=== PATIENT | male | born 1955 | race Hispanic/Latino ===

== ENCOUNTER 2017-02-09 11:01 | Inpatient (IN) | payer MEDICARE, OTHER ==
[2017-02-09 11:02] VITALS: BMI 25.0
[2017-02-09 13:09] LABS: BASO % 0.3 % (0.0-2.0); EOS # 0.1 K/uL (0.0-0.7); HEMATOCRIT 33.6 % (35.0-51.0); LYMPH # 0.7 K/uL (1.0-4.3); LYMPH % 7.1 % (20.0-40.0); MEAN CORPUSCULAR HGB CONC 31.9 g/dL (33.0-37.0); MEAN PLATELET VOLUME 10.8 fL (7.2-11.7); MONO # 0.8 K/uL (0.0-0.8); MONO % 8.1 % (0.0-10.0); PLATELET COUNT 194 K/uL (130-400); RED CELL DISTRIBUTION WIDTH 15.5 % (11.5-14.5); WHITE BLOOD COUNT 10.4 K/uL (4.8-10.8)
[2017-02-09 13:11] LABS: CHLORIDE 99 mmol/L (98-107); MEAN CELL VOLUME 84.8 fL (80.0-94.0); POTASSIUM 2.6 mmol/L (3.6-5.2); SODIUM 134 mmol/L (132-148)
[2017-02-09 13:13] LABS: GFR AFRICAN-AMERICAN > 60
[2017-02-09 13:14] LABS: ALB/GLOB RATIO 0.9 (1.0-2.1); ALKALINE PHOSPHATASE 64 U/L (38-126); ALT/SGPT 45 U/L (21-72); AST/SGOT 50 U/L (17-59); BILIRUBIN,TOTAL 0.3 mg/dL (0.2-1.3); BLOOD UREA NITROGEN 16 mg/dL (9-20); CARBON DIOXIDE 21 mmol/L (22-30); GLUCOSE,RANDOM 241 mg/dL (75-110); TOTAL PROTEIN 5.2 g/dL (6.3-8.3)
[2017-02-09 13:15] LABS: CALCIUM 7.2 mg/dl (8.6-10.4)
[2017-02-09 13:20] LABS: INR 1.2
--- NOTE | 2017-02-09 13:24 | C.PDOC ---
History Of Present Illness 61-year-old male, PMHx includes Diabetes, presents to the emergency department with complaints of increasing pain to left foot for the past several weeks. Patient notes an ulcer to the dorsum w/ drainage and increasing swelling. Patient has a Hx of ulcers/pain to feet secondary to diabetes. Notes that diabetes is becoming difficult to control. Denies nausea/vomiting, fevers, chills, shortness of breath, chest pain, or any other associated symptoms. No other complaints at this time. Time Seen by Provider: 02/09/17 13:08 Chief Complaint (Nursing): Lower Extremity Problem/Injury History Per: Patient History/Exam Limitations: no limitations Past Medical History Reviewed: Historical Data, Nursing Documentation, Vital Signs Vital Signs: Last Vital Signs Temp 97.4 F L 02/10/17 08:49 Pulse 96 H 02/10/17 08:49 Resp 20 02/10/17 08:49 BP 116/62 02/10/17 10:12 Pulse Ox 100 02/10/17 13:53 - Medical History PMH: Diabetes, HTN, Hypercholesterolemia, Personality Disorder Other Surgeries: "foot" Family History: States: Unknown Family Hx - Social History Hx Tobacco Use: No Hx Alcohol Use: Yes Hx Substance Use: No - Immunization History Hx Tetanus Toxoid Vaccination: No Review Of Systems Except As Marked, All Systems Reviewed And Found Negative. Constitutional: Negative for: Fever, Chills Respiratory: Negative for: Shortness of Breath Gastrointestinal: Negative for: Nausea, Vomiting Musculoskeletal: Positive for: Foot Pain Skin: Negative for: Rash Physical Exam - Physical Exam Appears: Non-toxic, No Acute Distress Skin: Warm, Dry, No Rash Neck: Normal ROM Respiratory: No Accessory Muscle Use, No Wheezing Extremity: Deformity (Charcot's deformity both feet, Rt with amputation 4 -5 metarsal), Other (Left - mid dorsum with ulcer, difuse swelling tenderness and warmth) Neurological/Psych: Oriented x3, Normal Speech, Normal Cognition ED Course And Treatment - Laboratory Results Result Diagrams: 02/09/17 12:56 02/10/17 07:04 O2 Sat by Pulse Oximetry: 100 Medical Decision Making Medical Decision Making: Clinically c/w diabetic foot infection Pt started on zosyn and vancomycin, tetanus updated Pt will need admission for IV abx and possible surgery Discussed with dr Josue agrees with plan Disposition - Disposition Disposition: HOSPITALIZED Disposition Time: 00:00 Condition: GOOD - Clinical Impression Clinical Impression: Diabetic foot infection, Diabetic Charcot's foot - Scribe Statement The provider has reviewed the documentation as recorded by the Scribrosio Sharif All medical record entries made by the Scribe were at my direction and personally dictated by me. I have reviewed the chart and agree that the record accurately reflects my personal performance of the history, physical exam, medical decision making, and the department course for this patient. I have also personally directed, reviewed, and agree with the discharge instructions and disposition. Decision To Admit - Pt Status Changed To: Hospital Disposition Of: Inpatient - Admit Certification Admit to Inpatient:: After my assessment, the patient will require hospitalization for at least two midnights. This is because of the severity of symptoms shown, intensity of services needed, and/or the medical risk in this patient being treated as an outpatient. - InPatient: Physician Admission Certification: I certify that this patient requires 2 or more midnights of care for the following reason:: see note - . Bed Request Type: Regular Admitting Physician: Dillan Iglesias Patient Diagnosis: Diabetic foot infection, Diabetic Charcot's foot
[2017-02-09 13:28] LABS: EOSINOPHIL 1 % (0-4); MYELOCYTE 1 % (0-0); NEUTROPHIL 87 % (50-75); TOTAL CELLS COUNTED 100
[2017-02-09] MEDS ORDERED: Potassium Chloride 20 mEq ER Tab PO STA (13:29)
[2017-02-09] MEDS ORDERED: Piperacillin/Tazobact 3.375 gm 100 ML IV STA (13:29)
[2017-02-09 13:31] LABS: LARGE PLATELETS PRESENT
[2017-02-09] MEDS ORDERED: Piperacillin/Tazobact 3.375 gm 100 ML IVPB ONE (13:50)
[2017-02-09] MEDS ORDERED: Potassium Chloride 20 mEq ER Tab PO ONE ×3 (13:50→19:42)
--- NOTE | 2017-02-09 15:25 | RAD ---
Indication: Swollen, infection Left foot radiographs Comparison: Left foot radiographs performed 11/19/14 Findings: Extensive destructive changes, sclerosis, and abnormality involving the midfoot compatible with Charcot's joint. Extensive joint space narrowing throughout the foot. Osseous fusion noted about the mid to distal 4th and 5th metatarsals. Destruction of the PIP joint. Soft tissue swelling. Osseous demineralization. Impression: Extensive deformity. Midfoot collapse. Extensive destructive changes, sclerosis, and abnormality particularly involving the midfoot compatible with Charcot's joint. Extensive soft tissue swelling. Correlate clinically. Please note that MRI with IV contrast is more sensitive in detection of acute osteomyelitis.
[2017-02-09] MEDS: Potassium Chloride 20 mEq ER Tab PO SCH (19:49)
[2017-02-09] MEDS: Piperacill/Tazo 3.375gm in Dex 50 ML IVPB SCH (20:04)
[2017-02-09] MEDS ORDERED: Insulin Detemir 100 units/ml Vial (Levemir) SC STA (21:52)
[2017-02-09] MEDS ORDERED: (Novolog) Insulin Aspart, Recombinant 100 u/ml 10 ml vial SC STA (21:52)
[2017-02-09 23:39] VITALS: RESP 20
[2017-02-10] MEDS: Piperacill/Tazo 3.375gm in Dex 50 ML IVPB SCH ×4 (01:00→20:00)
[2017-02-10] MEDS ORDERED: (Novolog) Insulin Aspart, Recombinant 100 u/ml 10 ml vial SC ONE (06:24)
[2017-02-10 07:27] LABS: CHLORIDE 97 mmol/L (98-107)
[2017-02-10 07:28] LABS: POTASSIUM 3.8 mmol/L (3.6-5.2); SODIUM 136 mmol/L (132-148)
[2017-02-10 07:30] LABS: GFR AFRICAN-AMERICAN > 60
[2017-02-10 07:31] LABS: BLOOD UREA NITROGEN 20 mg/dL (9-20); CALCIUM 8.9 mg/dl (8.6-10.4); CARBON DIOXIDE 26 mmol/L (22-30); GLUCOSE,RANDOM 375 mg/dL (75-110)
[2017-02-10] MEDS: (Novolog) Insulin Aspart, Recombinant 100 u/ml 10 ml vial SC SCH ×4 (08:57→21:53)
[2017-02-10] MEDS: Potassium Chloride 20 mEq ER Tab PO SCH ×2 (10:10→17:47)
[2017-02-10] MEDS: Insulin Detemir 100 units/ml Vial (Levemir) SC SCH (10:11)
[2017-02-10] MEDS: Enoxaparin 40 mg Syringe SC SCH (11:42)
--- NOTE | 2017-02-10 13:00 | CP.PCM.CON ---
History of Present Illness - History of Present Illness History of Present Illness: PODIATRY CONSULT NOTE 61 year old male evaluated with attending, Dr. Soliman this morning at bedside. Pt complains of left foot plantar wound. Pt reports he has chronic history with this wound but recently wound site has expanded, and has noted serous drainage. He denies recent F/C/N/V/SOB/CP. Denies pain to the left foot foot. Past Patient History - Infectious Disease Hx of Infectious Diseases: None - Past Medical History & Family History Past Medical History?: Yes - Past Social History Smoking Status: Former Smoker - CARDIAC Hx Hypercholesterolemia: Yes Hx Hypertension: Yes - PULMONARY Hx Respiratory Disorders: No - NEUROLOGICAL Hx Neurological Disorder: No - HEENT Hx HEENT Problems: No - RENAL Hx Chronic Kidney Disease: No - ENDOCRINE/METABOLIC Hx Diabetes Mellitus Type 2: Yes (greater than 30 years. On Insulin) - HEMATOLOGICAL/ONCOLOGICAL Hx Blood Disorders: No - INTEGUMENTARY Hx Dermatological Problems: No - MUSCULOSKELETAL/RHEUMATOLOGICAL Hx Falls: No Hx Unsteady Gait: Yes (L foot non-weight bearing) - GASTROINTESTINAL Hx Gastrointestinal Disorders: No - GENITOURINARY/GYNECOLOGICAL Hx Genitourinary Disorders: No - PSYCHIATRIC Hx Psychophysiologic Disorder: No Hx Substance Use: No - SURGICAL HISTORY Hx Surgeries: Yes Hx Amputation: Yes (Right foot 4th&5th digit amputation 25 yrs ago) - ANESTHESIA Hx Anesthesia: Yes Hx Anesthesia Reactions: No Hx Malignant Hyperthermia: No Meds Allergies/Adverse Reactions: Allergies Allergy/AdvReac Type Severity Reaction Status Date / Time No Known Allergies Allergy Verified 02/09/17 11:22 - Medications Medications: Current Medications Carvedilol (Coreg) 25 mg PO BID REPLACED BY [facility] Last Admin: 02/10/17 10:12 Dose: 25 mg Diphenhydramine HCl (Benadryl) 25 mg PO HS PRN PRN Reason: Insomnia Last Admin: 02/10/17 02:14 Dose: 25 mg Enoxaparin Sodium (Lovenox) 40 mg SC DAILY REPLACED BY [facility] Last Admin: 02/10/17 11:42 Dose: 40 mg Vancomycin HCl (Vancomycin 1gm In Normal Saline Addvantage) 250 mls @ 166.667 mls/hr IV STAT REPLACED BY [facility] Piperacillin Sod/Tazobactam Sod (Zosyn 3.375 Gm Iv Premix) 50 mls @ 100 mls/hr IVPB Q6H REPLACED BY [facility] Last Admin: 02/10/17 12:52 Dose: 100 mls/hr Insulin Aspart (Novolog) 0 unit SC ACHS REPLACED BY [facility] PRN Reason: Protocol Last Admin: 02/10/17 11:42 Dose: 2 unit Insulin Detemir (Levemir) 10 unit SC DAILY REPLACED BY [facility] Last Admin: 02/10/17 10:11 Dose: 10 unit Lisinopril (Zestril) 20 mg PO DAILY [facility]PLACED BY [facility] Last Admin: 02/10/17 10:10 Dose: 20 mg Potassium Chloride (K-Dur 20 Meq Er Tab) 20 meq PO BID REPLACED BY [facility] Last Admin: 02/10/17 10:10 Dose: 20 meq Physical Exam - Constitutional Appears: Well, Non-toxic, No Acute Distress - Extremities Exam Additional comments: Left LE exam. Dressing clean, dry, and intact. Derm: Ulceration noted to plantar aspect of mid-foot measuring approximately 2.7 cm x 0.6 cm x 0.6cm. Mal odor noted, macerated and hyperkeratotic wound margins noted. No active drainage. Localized edema noted. Leg with superficial ulceration, no drainage, no malodor. Minimal non-pitting edema present to dorsum of foot VASC: DP and PT pulses 1/4. VICE PRESIDENT PAYER<3 seconds, TG WNL, mild non-pitting edema of the right lower extremity and foot. Neuro: Protective sensation grossly diminished. Light touch sensation intact. Ortho: No gross deformities noted. Pedal muscle strength graded 5/5. - Neurological Exam Neurological exam: Alert, Oriented x3 - Psychiatric Exam Psychiatric exam: Normal Affect, Normal Mood Results - Vital Signs Recent Vital Signs: Last Vital Signs Temp 97.4 F L 02/10/17 08:49 Pulse 96 H 02/10/17 08:49 Resp 20 02/10/17 08:49 BP 116/62 02/10/17 10:12 Pulse Ox 97 02/10/17 08:49 - Labs Result Diagrams: 02/09/17 12:56 02/10/17 07:04 Labs: Laboratory Results - last 24 hr 02/09/17 02/10/17 02/10/17 21:48 02:15 05:57 Sodium Potassium Chloride Carbon Dioxide Anion Gap BUN Creatinine Est GFR ( Amer) Est GFR (Non-Af Amer) POC Glucose (mg/dL) 432 H* 337 H 435 H* Random Glucose Calcium Magnesium 02/10/17 02/10/17 07:04 07:26 Sodium 136 Potassium 3.8 Chloride 97 L Carbon Dioxide 26 Anion Gap 17 BUN 20 Creatinine 1.3 Est GFR ( Amer) > 60 Est GFR (Non-Af Amer) 56 POC Glucose (mg/dL) 361 H Random Glucose 375 H Calcium 8.9 Magnesium 1.7 Assessment & Plan - Assessment and Plan (Free Text) Assessment: 61 year old male with left foot Andre grade 2 ulceration. Plan: Pt evaluated and treated at bedside with Dr. Soliman, present. Chart, labs, and vitals reviewed. -Aseptically debrided ulceration site using #10 blade down to dermal tissue layer, excized a total of 6cm2 of macerated-hyperkeratoitc tissue. -Wound sites dressed and packed with betadine Wet-to-dry dressing, DSD, MARIA EUGENIA. - Continue IV antibiotics. -Wound culture results-pending. -Continue IV abx. Infectious disease consult-pending. Podiatry will follow patient while on floors. - Date & Time Date: 02/10/17 Time: 10:00
--- NOTE | 2017-02-10 15:54 | CP.PCM.HP ---
History of Present Illness - History of Present Illness History of Present Illness: CC: left foot pain weeks HPI: 61 year old male, h/o diabetes, PVD, left foot ulcer, Anemia seen ER c/o left foot pain and leg pains few days. Also c/o weakness and difficulties walking. Present on Admission - Present on Admission Any Indicators Present on Admission: Yes History of DVT/PE: No History of Uncontrolled Diabetes: Yes Urinary Catheter: No Decubitus Ulcer Present: No Review of Systems - Review of Systems All systems: reviewed and no additional remarkable complaints except (foot and leg pains, sweating, fatigue) Past Patient History - Infectious Disease Hx of Infectious Diseases: None - Past Medical History & Family History Past Medical History?: Yes - Past Social History Smoking Status: Former Smoker - CARDIAC Hx Hypercholesterolemia: Yes Hx Hypertension: Yes - PULMONARY Hx Respiratory Disorders: No - NEUROLOGICAL Hx Neurological Disorder: No - HEENT Hx HEENT Problems: No - RENAL Hx Chronic Kidney Disease: No - ENDOCRINE/METABOLIC Hx Diabetes Mellitus Type 2: Yes (greater than 30 years. On Insulin) - HEMATOLOGICAL/ONCOLOGICAL Hx Blood Disorders: No - INTEGUMENTARY Hx Dermatological Problems: No - MUSCULOSKELETAL/RHEUMATOLOGICAL Hx Falls: No Hx Unsteady Gait: Yes (L foot non-weight bearing) - GASTROINTESTINAL Hx Gastrointestinal Disorders: No - GENITOURINARY/GYNECOLOGICAL Hx Genitourinary Disorders: No - PSYCHIATRIC Hx Substance Use: No - SURGICAL HISTORY Hx Surgeries: Yes Hx Amputation: Yes (Right foot 4th&5th digit amputation 25 yrs ago) - ANESTHESIA Hx Anesthesia: Yes Hx Anesthesia Reactions: No Hx Malignant Hyperthermia: No Meds Allergies/Adverse Reactions: Allergies Allergy/AdvReac Type Severity Reaction Status Date / Time No Known Allergies Allergy Verified 02/09/17 11:22 Physical Exam - Constitutional Appears: Chronically Ill - Head Exam Head Exam: NORMAL INSPECTION - Eye Exam Eye Exam: Normal appearance - ENT Exam ENT Exam: Normal Exam - Neck Exam Neck exam: Positive for: Normal Inspection - Respiratory Exam Respiratory Exam: NORMAL BREATHING PATTERN - Cardiovascular Exam Cardiovascular Exam: REGULAR RHYTHM - GI/Abdominal Exam GI & Abdominal Exam: Soft - Rectal Exam Rectal Exam: Deferred - Extremities Exam Extremities exam: Positive for: tenderness (left foot dressing noted) Results - Vital Signs Recent Vital Signs: Last Vital Signs Temp 97.4 F L 02/10/17 08:49 Pulse 96 H 02/10/17 08:49 Resp 20 02/10/17 08:49 BP 116/62 02/10/17 10:12 Pulse Ox 100 02/10/17 14:08 - Labs Result Diagrams: 02/09/17 12:56 02/10/17 07:04 Labs: Laboratory Results - last 24 hr 02/09/17 02/10/17 02/10/17 21:48 02:15 05:57 Sodium Potassium Chloride Carbon Dioxide Anion Gap BUN Creatinine Est GFR ( Amer) Est GFR (Non-Af Amer) POC Glucose (mg/dL) 432 H* 337 H 435 H* Random Glucose Calcium Magnesium 02/10/17 02/10/17 07:04 07:26 Sodium 136 Potassium 3.8 Chloride 97 L Carbon Dioxide 26 Anion Gap 17 BUN 20 Creatinine 1.3 Est GFR ( Amer) > 60 Est GFR (Non-Af Amer) 56 POC Glucose (mg/dL) 361 H Random Glucose 375 H Calcium 8.9 Magnesium 1.7 Assessment & Plan (1) Diabetic foot infection Status: Acute (2) Anemia Status: Chronic Priority: Medium Diagnosis Date: 11/19/14 (3) Uncontrolled diabetes mellitus Status: Acute - Assessment and Plan (Free Text) Plan: Continue medications. Podiatry Consult Dr. Soliman - Date & Time Date: 02/10/17 Time: 15:57
[2017-02-10] MEDS ORDERED: Vancomycin 1 gm/NS 200 ml 200 ML IVPB ONE (16:00)
--- NOTE | 2017-02-10 23:01 | CP.PCM.CON ---
History of Present Illness - History of Present Illness History of Present Illness: 61 year old male seen today for chronic foot wound left .Pt. has chronic wound and Charcot changes in foot and has not been in for treatment for several years . Wound is infected and deep .Vascular status intact . No abscess noted . Xrays -Charcot changes .Will order MRI to R/O OM.See Resident note for complete findings. Past Patient History - Infectious Disease Hx of Infectious Diseases: None - Past Medical History & Family History Past Medical History?: Yes - Past Social History Smoking Status: Former Smoker - CARDIAC Hx Hypercholesterolemia: Yes Hx Hypertension: Yes - PULMONARY Hx Respiratory Disorders: No - NEUROLOGICAL Hx Neurological Disorder: No - HEENT Hx HEENT Problems: No - RENAL Hx Chronic Kidney Disease: No - ENDOCRINE/METABOLIC Hx Diabetes Mellitus Type 2: Yes (greater than 30 years. On Insulin) - HEMATOLOGICAL/ONCOLOGICAL Hx Blood Disorders: No - INTEGUMENTARY Hx Dermatological Problems: No - MUSCULOSKELETAL/RHEUMATOLOGICAL Hx Falls: No Hx Unsteady Gait: Yes (L foot non-weight bearing) - GASTROINTESTINAL Hx Gastrointestinal Disorders: No - GENITOURINARY/GYNECOLOGICAL Hx Genitourinary Disorders: No - PSYCHIATRIC Hx Psychophysiologic Disorder: No Hx Substance Use: No - SURGICAL HISTORY Hx Surgeries: Yes Hx Amputation: Yes (Right foot 4th&5th digit amputation 25 yrs ago) - ANESTHESIA Hx Anesthesia: Yes Hx Anesthesia Reactions: No Hx Malignant Hyperthermia: No Meds Allergies/Adverse Reactions: Allergies Allergy/AdvReac Type Severity Reaction Status Date / Time No Known Allergies Allergy Verified 02/09/17 11:22 - Medications Medications: Current Medications Carvedilol (Coreg) 25 mg PO BID [facility] Last Admin: 02/10/17 17:49 Dose: 25 mg Diazepam (Valium) 5 mg PO HS PRN PRN Reason: Insomnia Last Admin: 02/10/17 21:52 Dose: 5 mg Enoxaparin Sodium (Lovenox) 40 mg SC DAILY [facility] Last Admin: 02/10/17 11:42 Dose: 40 mg Vancomycin HCl (Vancomycin 1gm In Normal Saline Addvantage) 250 mls @ 166.667 mls/hr IV STAT [facility] Piperacillin Sod/Tazobactam Sod (Zosyn 3.375 Gm Iv Premix) 50 mls @ 100 mls/hr IVPB Q6H [facility] Last Admin: 02/10/17 20:00 Dose: 100 mls/hr Insulin Aspart (Novolog) 0 unit SC ACHS [facility] PRN Reason: Protocol Last Admin: 02/10/17 21:53 Dose: 2 unit Insulin Detemir (Levemir) 10 unit SC DAILY [facility] Last Admin: 02/10/17 10:11 Dose: 10 unit Lisinopril (Zestril) 20 mg PO DAILY [facility] Last Admin: 02/10/17 10:10 Dose: 20 mg Potassium Chloride (K-Dur 20 Meq Er Tab) 20 meq PO BID [facility] Last Admin: 02/10/17 17:47 Dose: 20 meq Physical Exam - Extremities Exam Additional comments: o/ andre 2 ulcer midfoot left with deep probe and malodor . Vascular status grossly intact b/l DM neuropathy b/l wiyh decreased sensorium . Charcot foot b/l left>>right . Results - Vital Signs Recent Vital Signs: Last Vital Signs Temp 97.4 F L 02/10/17 08:49 Pulse 96 H 02/10/17 08:49 Resp 20 02/10/17 08:49 BP 135/82 02/10/17 17:49 Pulse Ox 100 02/10/17 14:08 - Labs Result Diagrams: 02/09/17 12:56 02/10/17 07:04 Labs: Laboratory Results - last 24 hr 02/10/17 02/10/17 02/10/17 02:15 05:57 07:04 Sodium 136 Potassium 3.8 Chloride 97 L Carbon Dioxide 26 Anion Gap 17 BUN 20 Creatinine 1.3 Est GFR ( Amer) > 60 Est GFR (Non-Af Amer) 56 POC Glucose (mg/dL) 337 H 435 H* Random Glucose 375 H Calcium 8.9 Magnesium 1.7 02/10/17 02/10/17 02/10/17 07:26 11:35 16:53 Sodium Potassium Chloride Carbon Dioxide Anion Gap BUN Creatinine Est GFR ( Amer) Est GFR (Non-Af Amer) POC Glucose (mg/dL) 361 H 195 H 295 H Random Glucose Calcium Magnesium 02/10/17 21:33 Sodium Potassium Chloride Carbon Dioxide Anion Gap BUN Creatinine Est GFR ( Amer) Est GFR (Non-Af Amer) POC Glucose (mg/dL) 335 H Random Glucose Calcium Magnesium Assessment & Plan - Assessment and Plan (Free Text) Assessment: A/Infected Andre 2 ulcer left Plan: p/IV antibiotics /1/4 strength Dakins solution wet/dry dressing daily. MRI to R/O O.M.
[2017-02-11] MEDS: Piperacill/Tazo 3.375gm in Dex 50 ML IVPB SCH ×4 (01:45→19:48)
[2017-02-11] MEDS: (Novolog) Insulin Aspart, Recombinant 100 u/ml 10 ml vial SC SCH ×4 (08:29→22:00)
--- NOTE | 2017-02-11 10:07 | CP.PCM.PN ---
Subjective - Date & Time of Evaluation Date of Evaluation: 02/11/17 Time of Evaluation: 10:05 - Subjective Subjective: S: C/o problem sleeping. Wants to go home and continue IV antibiotic at home. Objective - Vital Signs/Intake and Output Vital Signs (last 24 hours): Temp Pulse Resp BP Pulse Ox 97.4 F L 110 H 20 112/75 96 02/11/17 08:13 02/11/17 08:13 02/11/17 08:13 02/11/17 08:13 02/11/17 08:13 Intake and Output: 02/11/17 02/11/17 06:59 18:59 Intake Total 750 Output Total 900 Balance -150 - Medications Medications: Current Medications Acetaminophen/Codeine Phosphate (Tylenol/Codeine 300 Mg/30 Mg) 1 ea PO Q4 PRN PRN Reason: Pain, moderate (4-7) Carvedilol (Coreg) 25 mg PO BID [facility] Last Admin: 02/10/17 17:49 Dose: 25 mg Diazepam (Valium) 5 mg PO HS PRN PRN Reason: Insomnia Last Admin: 02/10/17 21:52 Dose: 5 mg Enoxaparin Sodium (Lovenox) 40 mg SC DAILY [facility] Last Admin: 02/10/17 11:42 Dose: 40 mg Vancomycin HCl (Vancomycin 1gm In Normal Saline Addvantage) 250 mls @ 166.667 mls/hr IV STAT [facility] Piperacillin Sod/Tazobactam Sod (Zosyn 3.375 Gm Iv Premix) 50 mls @ 100 mls/hr IVPB Q6H [facility] Last Admin: 02/11/17 08:28 Dose: 100 mls/hr Insulin Aspart (Novolog) 0 unit SC ACHS [facility] PRN Reason: Protocol Last Admin: 02/11/17 08:29 Dose: 10 unit Insulin Glargine (Lantus) 40 unit SC DAILY [facility] Lisinopril (Zestril) 20 mg PO DAILY [facility] Last Admin: 02/10/17 10:10 Dose: 20 mg Potassium Chloride (K-Dur 20 Meq Er Tab) 20 meq PO BID [facility] Last Admin: 02/10/17 17:47 Dose: 20 meq - Labs Labs: 02/10/17 07:04 PT 12.9 SECONDS (9.7-12.2) H 02/09/17 12:56 INR 1.2 02/09/17 12:56 APTT 31 SECONDS (21-34) 02/09/17 12:56 - Constitutional Appears: Chronically Ill - Head Exam Head Exam: NORMAL INSPECTION - Eye Exam Eye Exam: Normal appearance - Neck Exam Neck Exam: Normal Inspection - Respiratory Exam Respiratory Exam: NORMAL BREATHING PATTERN - Cardiovascular Exam Cardiovascular Exam: REGULAR RHYTHM - GI/Abdominal Exam GI & Abdominal Exam: Soft - Rectal Exam Rectal Exam: Deferred - Extremities Exam Extremities Exam: Tenderness - Neurological Exam Neurological Exam: Alert Assessment and Plan (1) Diabetic foot infection Status: Acute (2) Anemia Status: Chronic (3) Uncontrolled diabetes mellitus Status: Acute - Assessment and Plan (Free Text) Plan: P: Will Discuss with Dr. Dasilva about home IV antibiotic. Inceased insuline dose. BS elevated
[2017-02-11] MEDS: Potassium Chloride 20 mEq ER Tab PO SCH ×2 (10:14→18:00)
[2017-02-11] MEDS: Enoxaparin 40 mg Syringe SC SCH (10:14)
[2017-02-11] MEDS: Insulin Detemir 100 units/ml Vial (Levemir) SC SCH (10:15)
--- NOTE | 2017-02-11 11:11 | CP.PCM.PN ---
Subjective - Date & Time of Evaluation Date of Evaluation: 02/11/17 Time of Evaluation: 02:40 - Subjective Subjective: 61 year old male evaluated bedside. Pt has no pedal complaints at this time. He denies both acute overnight events and recent F/C/N/V/SOB/CP. Denies pain to the left foot foot. Pt states he ideally would like to be discharged by Sunday, potentially AMA if needed. Objective - Vital Signs/Intake and Output Vital Signs (last 24 hours): Temp Pulse Resp BP Pulse Ox 97.4 F L 110 H 20 112/75 96 02/11/17 08:13 02/11/17 08:13 02/11/17 08:13 02/11/17 10:14 02/11/17 08:13 Intake and Output: 02/11/17 02/11/17 06:59 18:59 Intake Total 750 Output Total 900 Balance -150 - Medications Medications: Current Medications Acetaminophen/Codeine Phosphate (Tylenol/Codeine 300 Mg/30 Mg) 1 ea PO Q4 PRN PRN Reason: Pain, moderate (4-7) Carvedilol (Coreg) 25 mg PO BID [facility] Last Admin: 02/11/17 10:14 Dose: 25 mg Diazepam (Valium) 5 mg PO HS PRN PRN Reason: Insomnia Last Admin: 02/10/17 21:52 Dose: 5 mg Enoxaparin Sodium (Lovenox) 40 mg SC DAILY [facility] Last Admin: 02/11/17 10:14 Dose: 40 mg Vancomycin HCl (Vancomycin 1gm In Normal Saline Addvantage) 250 mls @ 166.667 mls/hr IV STAT [facility] Piperacillin Sod/Tazobactam Sod (Zosyn 3.375 Gm Iv Premix) 50 mls @ 100 mls/hr IVPB Q6H [facility] Last Admin: 02/11/17 08:28 Dose: 100 mls/hr Insulin Aspart (Novolog) 0 unit SC ACHS [facility] PRN Reason: Protocol Last Admin: 02/11/17 08:29 Dose: 10 unit Insulin Glargine (Lantus) 40 unit SC DAILY [facility] Lisinopril (Zestril) 20 mg PO DAILY [facility] Last Admin: 02/11/17 10:14 Dose: 20 mg Potassium Chloride (K-Dur 20 Meq Er Tab) 20 meq PO BID [facility] Last Admin: 02/11/17 10:14 Dose: 20 meq - Labs Labs: 02/10/17 07:04 PT 12.9 SECONDS (9.7-12.2) H 02/09/17 12:56 INR 1.2 02/09/17 12:56 APTT 31 SECONDS (21-34) 02/09/17 12:56 - Constitutional Appears: Well, Non-toxic, No Acute Distress - Extremities Exam Additional comments: Left LE exam. Dressing clean, dry, and intact. Derm: Ulceration noted to plantar aspect of mid-foot measuring approximately 2.7 cm x 0.6 cm x 0.6cm. Mal odor noted, macerated wound margin noted. No active drainage. Localized edema noted. Leg with superficial ulceration, no drainage, no malodor. Minimal non-pitting edema present to dorsum of foot. Lateral border 0.5 cm skin cleft noted with no epidermal compromise noted. VASC: DP and PT pulses 1/4. PIECE MEAT TRIMMER<3 seconds, TG WNL, mild non-pitting edema of the right lower extremity and foot. Neuro: Protective sensation grossly diminished. Light touch sensation intact. Ortho: No gross deformities noted. Pedal muscle strength graded 5/5. - Neurological Exam Neurological Exam: Alert, Awake, Oriented x3 - Psychiatric Exam Psychiatric exam: Normal Affect, Normal Mood Assessment and Plan - Assessment and Plan (Free Text) Assessment: 61 year old male with left foot Andre grade 2 ulceration. Plan: Pt evaluated and treated at bedside. Chart, labs, and vitals reviewed. Discussed with Dr. Janny hutton. -Wound sites dressed and packed with betadine Wet-to-dry dressing, DSD, MARIA EUGENIA. -Wound culture results-show Providencia Stuartii & Corynebacterisum species . -Continue IV abx. Infectious disease consult-pending. Podiatry will follow patient while on floors.
[2017-02-11] MEDS: Acetaminophen-Codeine 300/30 mg Tab PO PRN ×3 (12:21→22:01)
--- NOTE | 2017-02-11 16:33 | CP.PCM.CON ---
History of Present Illness - History of Present Illness History of Present Illness: 61 year old male, h/o diabetes, PVD, left foot ulcer, Anemia seen ER c/o left foot pain and leg pains few days. Also c/o weakness and difficulties walking. HAS CHRONIC ULCER LEFT FOOT WITH CHARCOT FOOT MISSING 4TH AND 5TH DIGITS RIGHT FOOT DENIES FEVER CHILLS REFUSED AMP IN PAST Past Patient History - Infectious Disease Hx of Infectious Diseases: None - Past Medical History & Family History Past Medical History?: Yes - Past Social History Smoking Status: Former Smoker - CARDIAC Hx Hypercholesterolemia: Yes Hx Hypertension: Yes - PULMONARY Hx Respiratory Disorders: No - NEUROLOGICAL Hx Neurological Disorder: No - HEENT Hx HEENT Problems: No - RENAL Hx Chronic Kidney Disease: No - ENDOCRINE/METABOLIC Hx Diabetes Mellitus Type 2: Yes (greater than 30 years. On Insulin) - HEMATOLOGICAL/ONCOLOGICAL Hx Blood Disorders: No - INTEGUMENTARY Hx Dermatological Problems: No - MUSCULOSKELETAL/RHEUMATOLOGICAL Hx Falls: No Hx Unsteady Gait: Yes (L foot non-weight bearing) - GASTROINTESTINAL Hx Gastrointestinal Disorders: No - GENITOURINARY/GYNECOLOGICAL Hx Genitourinary Disorders: No - PSYCHIATRIC Hx Psychophysiologic Disorder: No Hx Substance Use: No - SURGICAL HISTORY Hx Surgeries: Yes Hx Amputation: Yes (Right foot 4th&5th digit amputation 25 yrs ago) - ANESTHESIA Hx Anesthesia: Yes Hx Anesthesia Reactions: No Hx Malignant Hyperthermia: No Meds Allergies/Adverse Reactions: Allergies Allergy/AdvReac Type Severity Reaction Status Date / Time No Known Allergies Allergy Verified 02/09/17 11:22 - Medications Medications: Current Medications Acetaminophen/Codeine Phosphate (Tylenol/Codeine 300 Mg/30 Mg) 1 ea PO Q4 PRN PRN Reason: Pain, moderate (4-7) Last Admin: 02/11/17 12:21 Dose: 1 ea Carvedilol (Coreg) 25 mg PO BID [facility] Last Admin: 02/11/17 10:14 Dose: 25 mg Diazepam (Valium) 5 mg PO HS PRN PRN Reason: Insomnia Last Admin: 02/10/17 21:52 Dose: 5 mg Enoxaparin Sodium (Lovenox) 40 mg SC DAILY [facility] Last Admin: 02/11/17 10:14 Dose: 40 mg Vancomycin HCl (Vancomycin 1gm In Normal Saline Addvantage) 250 mls @ 166.667 mls/hr IV STAT [facility] Piperacillin Sod/Tazobactam Sod (Zosyn 3.375 Gm Iv Premix) 50 mls @ 100 mls/hr IVPB Q6H [facility] Last Admin: 02/11/17 12:50 Dose: 100 mls/hr Insulin Aspart (Novolog) 0 unit SC ACHS [facility] PRN Reason: Protocol Last Admin: 02/11/17 12:20 Dose: 10 unit Insulin Glargine (Lantus) 40 unit SC DAILY [facility] Lisinopril (Zestril) 20 mg PO DAILY [facility] Last Admin: 02/11/17 10:14 Dose: 20 mg Potassium Chloride (K-Dur 20 Meq Er Tab) 20 meq PO BID [facility] Last Admin: 02/11/17 10:14 Dose: 20 meq Physical Exam - Constitutional Appears: Non-toxic, Cachectic, Chronically Ill - Head Exam Head Exam: ATRAUMATIC, NORMAL INSPECTION, NORMOCEPHALIC - Eye Exam Eye Exam: EOMI, PERRL. absent: Scleral icterus Pupil Exam: PERRL - ENT Exam ENT Exam: Mucous Membranes Dry, Normal External Ear Exam, Normal Oropharynx - Neck Exam Neck exam: Negative for: Lymphadenopathy, Thyromegaly - Respiratory Exam Respiratory Exam: Decreased Breath Sounds, Clear to Auscultation Bilateral - Cardiovascular Exam Cardiovascular Exam: REGULAR RHYTHM, +S1, +S2 - GI/Abdominal Exam GI & Abdominal Exam: Diminished Bowel Sounds, Distended, Soft. absent: Guarding , Hernia, Organomegaly, Pulsatile Mass, Rebound, Tenderness - Rectal Exam Rectal Exam: Deferred - Exam Exam: NORMAL INSPECTION - Extremities Exam Extremities exam: Positive for: pedal edema. Negative for: calf tenderness, tenderness Additional comments: Left LE exam. Dressing clean, dry, and intact. Derm: Ulceration noted to plantar aspect of mid-foot measuring approximately 2.7 cm x 0.6 cm x 0.6cm. Mal odor noted, macerated and hyperkeratotic wound margins noted. No active drainage. Localized edema noted. Leg with superficial ulceration, no drainage, no malodor. Minimal non-pitting edema present to dorsum of foot VASC: DP and PT pulses 1/4. [employer]INEER<3 seconds, TG WNL, mild non-pitting edema of the right lower extremity and foot. Neuro: Protective sensation grossly diminished. Light touch sensation intact. Ortho: No gross deformities noted. Pedal muscle strength graded 5/5. - Back Exam Back exam: absent: CVA tenderness (L), CVA tenderness (R) - Neurological Exam Neurological exam: Alert, CN II-XII Intact, Oriented x3, Reflexes Normal - Psychiatric Exam Psychiatric exam: Normal Mood - Skin Skin Exam: Dry, Intact Results - Vital Signs Recent Vital Signs: Last Vital Signs Temp 97.9 F 02/11/17 16:00 Pulse 101 H 02/11/17 16:00 Resp 20 02/11/17 16:00 BP 122/73 02/11/17 16:00 Pulse Ox 97 02/11/17 16:00 - Labs Result Diagrams: 02/09/17 12:56 02/10/17 07:04 Labs: Laboratory Results - last 24 hr 02/10/17 02/10/17 02/10/17 11:35 16:53 21:33 POC Glucose (mg/dL) 195 H 295 H 335 H 02/11/17 02/11/17 02/11/17 07:25 11:39 16:05 POC Glucose (mg/dL) 376 H 358 H 300 H Assessment & Plan (1) Diabetic Charcot's foot Status: Acute (2) Diabetic foot infection Status: Acute (3) Atrial fibrillation Status: Acute (4) Chronic renal insufficiency, stage III (moderate) Status: Acute (5) Osteomyelitis of ankle or foot, acute Status: Acute (6) Uncontrolled diabetes mellitus Status: Acute - Assessment and Plan (Free Text) Assessment: CONSIDER BONE SCAN AND MRI WILL NEED OR DEBRIDEMENT CIONT IV ANTIBIOTICS AWAIT CULTURES
[2017-02-11] MEDS: Vancomycin 1 gm/NS 200 ml 200 ML IVPB SCH (19:47)
[2017-02-12] MEDS: Piperacill/Tazo 3.375gm in Dex 50 ML IVPB SCH (01:16)
[2017-02-12] MEDS: Vancomycin 1 gm/NS 200 ml 200 ML IVPB SCH (05:31)
[2017-02-12 08:24] VITALS: BP 125/83; PULSE 95; TEMP 97.3; O2SAT 98
--- NOTE | 2017-02-12 08:51 | CP.PCM.PN ---
Subjective - Date & Time of Evaluation Date of Evaluation: 02/12/17 Time of Evaluation: 08:30 - Subjective Subjective: Pt has foot pain but "can not wait for Dr Soliman to do something w/ my foot" No CP, no SOB, no edema and swelling decrease Want to sign AMA Objective - Vital Signs/Intake and Output Vital Signs (last 24 hours): Temp Pulse Resp BP Pulse Ox 97.3 F L 95 H 20 125/83 98 02/12/17 08:22 02/12/17 08:22 02/12/17 08:22 02/12/17 08:22 02/12/17 08:22 Intake and Output: 02/12/17 02/12/17 06:59 18:59 Intake Total 300 Output Total 600 Balance -300 - Medications Medications: Current Medications Acetaminophen/Codeine Phosphate (Tylenol/Codeine 300 Mg/30 Mg) 1 ea PO Q4 PRN PRN Reason: Pain, moderate (4-7) Last Admin: 02/11/17 22:01 Dose: 1 ea Carvedilol (Coreg) 25 mg PO BID [facility] Last Admin: 02/11/17 18:00 Dose: 25 mg Diazepam (Valium) 5 mg PO HS PRN PRN Reason: Insomnia Last Admin: 02/10/17 21:52 Dose: 5 mg Enoxaparin Sodium (Lovenox) 40 mg SC DAILY [facility] Last Admin: 02/11/17 10:14 Dose: 40 mg Piperacillin Sod/Tazobactam Sod (Zosyn 3.375 Gm Iv Premix) 50 mls @ 100 mls/hr IVPB Q6H [facility] Last Admin: 02/12/17 01:16 Dose: 100 mls/hr Vancomycin/Sodium Chloride (Vancocin) 200 mls @ 133.333 mls/hr IVPB Q12H [facility] Last Admin: 02/12/17 05:31 Dose: Not Given Insulin Aspart (Novolog) 0 unit SC ACHS [facility] PRN Reason: Protocol Last Admin: 02/11/17 22:00 Dose: 3 unit Insulin Glargine (Lantus) 40 unit SC DAILY [facility] Lisinopril (Zestril) 20 mg PO DAILY [facility] Last Admin: 02/11/17 10:14 Dose: 20 mg Potassium Chloride (K-Dur 20 Meq Er Tab) 20 meq PO BID [facility] Last Admin: 02/11/17 18:00 Dose: 20 meq Sodium Hypochlorite (Dakins Solution 0.25%) 3 ml TOP DAILY [facility] - Labs Labs: 02/10/17 07:04 PT 12.9 SECONDS (9.7-12.2) H 02/09/17 12:56 INR 1.2 02/09/17 12:56 APTT 31 SECONDS (21-34) 02/09/17 12:56 - Constitutional Appears: No Acute Distress - Eye Exam Eye Exam: Normal appearance - ENT Exam ENT Exam: Mucous Membranes Moist - Neck Exam Neck Exam: Full ROM. absent: Lymphadenopathy, Thyromegaly - Respiratory Exam Respiratory Exam: Clear to Ausculation Bilateral. absent: Rhonchi, Wheezes - Cardiovascular Exam Cardiovascular Exam: REGULAR RHYTHM, +S1, +S2. absent: Gallop, JVD, Murmur - GI/Abdominal Exam GI & Abdominal Exam: Soft. absent: Tenderness, Mass - Extremities Exam Extremities Exam: absent: Calf Tenderness, Joint Swelling, Pedal Edema ((+) Charcot defromity; left foot with drain) Assessment and Plan - Assessment and Plan (Free Text) Assessment: Infected L foot Ulcer ? Osteo NIDDM, HTN Patient want to sign AMA c/o having 2 bad night Cont meds.
[2017-02-12] MEDS ORDERED: (Lantus) Insulin Glargine, Recombinant SC SCH (10:00)
[2017-02-12] MEDS ORDERED: Dakin's Topical 0.25%-Half Strength (480 ml) TOP SCH (10:00)
--- NOTE | 2017-02-12 10:22 | CP.PCM.PN ---
Subjective - Date & Time of Evaluation Date of Evaluation: 02/12/17 Time of Evaluation: 10:22 Objective - Vital Signs/Intake and Output Vital Signs (last 24 hours): Temp Pulse Resp BP Pulse Ox 97.3 F L 95 H 20 125/83 98 02/12/17 08:22 02/12/17 08:22 02/12/17 08:22 02/12/17 08:22 02/12/17 08:22 Intake and Output: 02/12/17 02/12/17 06:59 18:59 Intake Total 300 Output Total 600 Balance -300 - Medications Medications: Current Medications Acetaminophen/Codeine Phosphate (Tylenol/Codeine 300 Mg/30 Mg) 1 ea PO Q4 PRN PRN Reason: Pain, moderate (4-7) Last Admin: 02/11/17 22:01 Dose: 1 ea Carvedilol (Coreg) 25 mg PO BID [facility] Last Admin: 02/11/17 18:00 Dose: 25 mg Diazepam (Valium) 5 mg PO HS PRN PRN Reason: Insomnia Last Admin: 02/10/17 21:52 Dose: 5 mg Enoxaparin Sodium (Lovenox) 40 mg SC DAILY [facility] Last Admin: 02/11/17 10:14 Dose: 40 mg Piperacillin Sod/Tazobactam Sod (Zosyn 3.375 Gm Iv Premix) 50 mls @ 100 mls/hr IVPB Q6H [facility] Last Admin: 02/12/17 01:16 Dose: 100 mls/hr Vancomycin/Sodium Chloride (Vancocin) 200 mls @ 133.333 mls/hr IVPB Q12H [facility] Last Admin: 02/12/17 05:31 Dose: Not Given Insulin Aspart (Novolog) 0 unit SC ACHS [facility] PRN Reason: Protocol Last Admin: 02/11/17 22:00 Dose: 3 unit Insulin Glargine (Lantus) 40 unit SC DAILY [facility] Lisinopril (Zestril) 20 mg PO DAILY [facility] Last Admin: 02/11/17 10:14 Dose: 20 mg Potassium Chloride (K-Dur 20 Meq Er Tab) 20 meq PO BID [facility] Last Admin: 02/11/17 18:00 Dose: 20 meq Sodium Hypochlorite (Dakins Solution 0.25%) 3 ml TOP DAILY [facility] - Labs Labs: 02/10/17 07:04 PT 12.9 SECONDS (9.7-12.2) H 02/09/17 12:56 INR 1.2 02/09/17 12:56 APTT 31 SECONDS (21-34) 02/09/17 12:56
== END 2017-02-12 10:00 | disposition left against medical advice (07) | DRG 638 ==
LOC: C.ER 11:01 → C.9E 15:14 → C.3T 20:06
PROVIDERS: ADMIT Internal Medicine; ATTEND Internal Medicine
DX: E11.621 Type 2 diabetes mellitus with foot ulcer (principal); L97.429 Non-pressure chronic ulcer of left heel and midfoot with unspecified severity; M86.172 Other acute osteomyelitis, left ankle and foot; E11.22 Type 2 diabetes mellitus with diabetic chronic kidney disease; E11.610 Type 2 diabetes mellitus with diabetic neuropathic arthropathy; E11.69 Type 2 diabetes mellitus with other specified complication; E11.65 Type 2 diabetes mellitus with hyperglycemia; I12.9 Hypertensive chronic kidney disease with stage 1 through stage 4 chronic kidney disease, or unspecified chronic kidney disease; N18.3 Chronic kidney disease, stage 3 (moderate); E11.51 Type 2 diabetes mellitus with diabetic peripheral angiopathy without gangrene; I48.91 Unspecified atrial fibrillation; E78.00 Pure hypercholesterolemia, unspecified; F60.9 Personality disorder, unspecified; D64.9 Anemia, unspecified; R26.81 Unsteadiness on feet; Z89.421 Acquired absence of other right toe(s); Z79.4 Long term (current) use of insulin; Z87.891 Personal history of nicotine dependence; Z23 Encounter for immunization